=== PATIENT | male | born 1990 | race Caucasian/White ===

== ENCOUNTER 2020-02-06 20:35 | Inpatient (IN) | payer MEDICAID ==
[~2020-02-06] VITALS: Ht 182.9 cm; Wt 70.0 kg
[2020-02-06 21:49] LABS: BASOPHILS % (AUTO) 0.2 % (0-1); EOSINOPHILS # (AUTO) 0.1 X10'3 (0-0.9); EOSINOPHILS % (AUTO) 0.7 % (0-6); HEMATOCRIT 40.2 % (42.0-52.0); LYMPHOCYTES # (AUTO) 0.9 X10'3 (1.1-4.8); LYMPHOCYTES % (AUTO) 7.6 % (21-51); MEAN CORPUSCULAR HEMOGLOBIN 33.4 PG (27.0-31.0); MEAN CORPUSCULAR HGB CONC 34.8 g/dL (33.0-36.5); MEAN CORPUSCULAR VOLUME 95.8 FL (78-98); MONOCYTES # (AUTO) 0.9 X10'3 (0-0.9); MONOCYTES % (AUTO) 7.4 % (2-12); NEUTROPHILS # (AUTO) 10.2 X10'3 (1.8-7.7); NEUTROPHILS % (AUTO) 84.1 % (42-75); PLATELET COUNT 206 X10'3 (140-440); RED CELL DISTRIBUTION WIDTH 13.9 % (11.5-14.5); WHITE BLOOD COUNT 12.1 X10'3 (4.5-11.0)
[2020-02-06 22:03] LABS: ALANINE AMINOTRANSFERASE 26 U/L (12-78); ALBUMIN 3.9 G/DL (3.4-5.0); ALBUMIN/GLOBULIN RATIO 1.2 (1.1-1.5); ALKALINE PHOSPHATASE 90 IU/L (46-116); ANION GAP 8 (8-16); ASPARTATE AMINO TRANSFERASE 26 U/L (10-37); BILIRUBIN,TOTAL 0.9 MG/DL (0.1-1.0); BLOOD UREA NITROGEN 14 MG/DL (7-18); BUN/CREATININE RATIO 13.2 (5.4-32.0); CALCIUM 9.2 MG/DL (8.5-10.1); CHLORIDE 102 MMOL/L (99-107); CREATININE 1.06 MG/DL (0.60-1.10); GLUCOSE 119 MG/DL (70-104); SODIUM 138 MMOL/L (135-145); TOTAL PROTEIN 7.2 G/DL (6.4-8.2); eGFR 83 ML/MIN
[2020-02-06] MEDS ORDERED: LORazepam 2 mg/ml vial IV ONE (22:45)
--- NOTE | 2020-02-06 22:46 | NUR ---
PT BROTHER MICHELA CALLED. RECEIVED PERMISSION FROM PT TO TALK WITH MICHELA. CALLBACK #[phone]
[2020-02-06 23:09] LABS: URINE AMPHETAMINE SCREEN POSITIVE (Neg); URINE BARBITUATE SCREEN NEGATIVE (Neg); URINE BENZODIAZEPINES SCREEN NEGATIVE (Neg); URINE CANNABINOID SCREEN POSITIVE (Neg); URINE COCAINE SCREEN POSITIVE (Neg); URINE METHADONE SCREEN NEGATIVE (Neg); URINE OPIATE SCREEN NEGATIVE (Neg); URINE PHENCYCLIDINE SCREEN NEGATIVE (Neg)
[2020-02-06 23:10] LABS: ETHANOL < 0.010 GM/DL (0.0-0.010)
[2020-02-07] MEDS ORDERED: LORazepam 2 mg/ml vial IV ONE (02:30)
[2020-02-07] MEDS ORDERED: normal saline 1000ML IV soln IVB ONE (02:30)
--- NOTE | 2020-02-07 02:58 | NUR ---
PT PULLED OUT IV IN HAND WHILE ATTEMPTING TO GET OUT OF BED. NEW IV PLACED AND TROP DRAWN
[2020-02-07] MEDS ORDERED: phenobarbital inj 260 MG in normal saline 100ml IV soln 98 ML IV STA (03:02)
--- NOTE | 2020-02-07 03:03 | NUR ---
SPOKE WITH IONA PUGA REGARDING PT SEEMING CONFUSED AND UNABLE TO PROCESS BASIC INSTRUCTIONS. RECEVIED VERBAL ORDER FOR PHENOBARBITAL 260MG IN 100ML NS IV X1 DOSE NOW. ORDER PLACED RECEIVED
--- NOTE | 2020-02-07 03:59 | NUR ---
PT CONFUSED AND UNABLE TO FOLLOW SAFETY DIRECTIONS. HE HAS PULLED HIS IV OUT AND WILL NOT QUIT CLIMBING OUT OF BED. MD AWARE AND VERBAL ORDER GIVEN FOR SOFT WRIST RESTRAINTS UNTIL PTS MENTATION IMPROVES AND HE IS ABLE TO FOLLOW DIRECTIONS.
[2020-02-07] MEDS ORDERED: NO HOME MEDS (04:35)
[2020-02-07] MEDS ORDERED: dextrose 50%-water 50ml dispensing syringe IV PRN (04:50)
[2020-02-07] MEDS ORDERED: potassium CL 10mEq/100ml bag 100 ML IV PRN ×2 (04:50)
[2020-02-07] MEDS ORDERED: potassium Cl 20 mEq SR tablet PO PRN ×2 (04:50)
[2020-02-07] MEDS ORDERED: magnesium Cl slow-release 64mg tablet PO PRN (04:50)
[2020-02-07] MEDS ORDERED: haloperidol 5mg tablet PO PRN (04:50)
[2020-02-07] MEDS ORDERED: HYDROcodone/acetaminophen 5mg/325mg tablet PO PRN (04:50)
[2020-02-07] MEDS ORDERED: morphine 2 MG/ML inj. syringe IV PRN (04:50)
[2020-02-07] MEDS ORDERED: LORazepam 2 mg/ml vial IV PRN (04:50)
[2020-02-07] MEDS ORDERED: magnesium 2GM in 50ml NS 50 ML IV PRN (04:50)
[2020-02-07] MEDS ORDERED: acetaminophen 325mg tablet PO PRN ×2 (04:50)
[2020-02-07] MEDS ORDERED: thiamine 100mg/ml 2ml inj. IV ONE (04:50)
[2020-02-07] MEDS ORDERED: ondansetron/PF 4mg/2ml inj IV PRN (04:50)
[2020-02-07] MEDS ORDERED: haloperidol lactate 5mg/ml inj IM PRN (04:50)
[2020-02-07] MEDS ORDERED: magnesium 4gm in 100ml NS 100 ML IV PRN (04:50)
[2020-02-07] MEDS ORDERED: thiamine inj. 100 MG in normal saline 100ml IV soln 100 ML IV ONE (05:05)
[2020-02-07] MEDS: normal saline 1000ml 1,000 ML IV SCH ×2 (05:14→19:20)
--- NOTE | 2020-02-07 05:32 | NUR ---
SPOKE WITH IONA PUGA REGARDING PT WITHDRAWAL PROTOCOL AND WHICH MEDICATION TO PROCEED WITH DUE TO PT STILL BEING AWAKE AND PULLING ON RESTRAINTS AND UNABLE TO REST. IONA PUGA SUGGESTED TO NEXT USE HALDOL 5MG IM ORDERED FOR WITHDRAWAL PROTOCOL TO RELAX PT.
--- NOTE | 2020-02-07 06:04 | NUR ---
PT NOW RESTING COMFORTABLY. NO S/S ACUTE DISTRESS. RESPIRATIONS EVEN AND UNLABORED. WILL CONTINUE TO MONITOR
[2020-02-07 06:11] LABS: CLARITY,URINE CLOUDY (Clear); COLOR,URINE YELLOW (Yellow); GLUCOSE, URINE NEGATIVE (Neg); KETONES,URINE NEGATIVE (Neg); LEUKOCYTE ESTERASE ,URINE NEGATIVE (Neg); NITRITES, URINE NEGATIVE (Neg); OCCULT BLOOD,URINE NEGATIVE (Neg); PH,URINE 6.5 (4.8-8.0); PROTEIN,URINE NEGATIVE (Neg); UROBILINOGEN,URINE 0.2 E.U/dL (0.2-1.0)
[2020-02-07 06:34] LABS: UA COLLECTION TYPE VOIDED
[2020-02-07 06:36] LABS: BACTERIA,URINE NONE SEEN /HPF (Neg); MUCUS STRANDS FEW /LPF (Neg); RBC,URINE NONE SEEN /HPF (0-2); SQUAMOUS EPITHELIAL CELL,UR FEW /LPF (FEW); WBC,URINE NONE SEEN /HPF (0-4)
[2020-02-07] MEDS: K and/or MAG REPLACEMENT MC SCH ×2 (08:00→19:21)
[2020-02-07] MEDS: docusate sod 100mg capsule PO SCH ×2 (09:47→19:19)
[2020-02-07] MEDS: CefTRIAXone 2gm/D5W 50ml BAG 50 ML IV SCH (09:47)
[2020-02-07] MEDS: heparin, porcine 5000 units/ml vial SQ SCH ×2 (09:49→19:20)
--- NOTE | 2020-02-07 11:14 | NUR ---
Removed restraints. Pt awaken to name. Explained to patient that I was removing restraints.
--- NOTE | 2020-02-07 12:28 | NUR ---
Pt resting with eyes closed. RR even and unlabored. No acute distress noted.
--- NOTE | 2020-02-07 12:31 | NUR ---
Office Services Assistant at bedside. Pt not alert enough for conversation, SS will re-evaluate patient on the floor.
--- NOTE | 2020-02-07 15:14 | NUR ---
Pt awakens to voice. Answering questions appropriately.
--- NOTE | 2020-02-07 16:21 | NUR ---
Patient in room ED 16. I have received report from and had the opportunity to ask questions and assume patient care.
--- NOTE | 2020-02-07 17:07 | NUR ---
Patient alert and oriented but reports still feeling confused . Patient able follow commands is cooperative.
[2020-02-07] MEDS ORDERED: DIVA500T2 PO (17:57)
[2020-02-07 18:00] VITALS: BP 129/95
[2020-02-07] MEDS ORDERED: HYDR-3717 PO (18:01)
[2020-02-07] MEDS ORDERED: QUET200T PO (18:01)
--- NOTE | 2020-02-07 18:33 | NUR ---
Patient in room PCU 3012. I have received report from BRIEN LUONG and had the opportunity to ask questions and assume patient care.
--- NOTE | 2020-02-07 19:02 | NUR ---
Problems reprioritized. Patient report given, questions answered & plan of care reviewed with Akira RN.
[2020-02-07] MEDS: lactobacillus rhamnosus 10,000 MMU CELLS/CAPSULE PO SCH (19:19)
[2020-02-08] MEDS: normal saline 1000ml 1,000 ML IV SCH ×3 (00:50→21:44)
[2020-02-08 02:00] VITALS: BP 113/81
[2020-02-08 05:52] LABS: BASOPHILS % (AUTO) 0.4 % (0-1); EOSINOPHILS # (AUTO) 0.3 X10'3 (0-0.9); EOSINOPHILS % (AUTO) 3.8 % (0-6); HEMATOCRIT 40.4 % (42.0-52.0); HEMOGLOBIN 13.8 g/dl (14.0-17.9); LYMPHOCYTES # (AUTO) 1.3 X10'3 (1.1-4.8); LYMPHOCYTES % (AUTO) 19.1 % (21-51); MEAN CORPUSCULAR HEMOGLOBIN 33.2 PG (27.0-31.0); MEAN CORPUSCULAR HGB CONC 34.3 g/dL (33.0-36.5); MEAN CORPUSCULAR VOLUME 96.9 FL (78-98); MEAN PLATELET VOLUME 7.4 FL (7.4-10.4); MONOCYTES # (AUTO) 0.6 X10'3 (0-0.9); MONOCYTES % (AUTO) 8.9 % (2-12); NEUTROPHILS # (AUTO) 4.6 X10'3 (1.8-7.7); NEUTROPHILS % (AUTO) 67.8 % (42-75); PLATELET COUNT 170 X10'3 (140-440); RED BLOOD COUNT 4.17 X10'6 (4.70-6.10); RED CELL DISTRIBUTION WIDTH 14.1 % (11.5-14.5); WHITE BLOOD COUNT 6.8 X10'3 (4.5-11.0)
[2020-02-08 06:00] VITALS: BP 113/77
[2020-02-08 06:09] LABS: ALANINE AMINOTRANSFERASE 26 U/L (12-78); ALBUMIN 3.4 G/DL (3.4-5.0); ALBUMIN/GLOBULIN RATIO 1.1 (1.1-1.5); ALKALINE PHOSPHATASE 74 IU/L (46-116); ANION GAP 8 (8-16); ASPARTATE AMINO TRANSFERASE 25 U/L (10-37); BILIRUBIN,TOTAL 0.8 MG/DL (0.1-1.0); BLOOD UREA NITROGEN 11 MG/DL (7-18); BUN/CREATININE RATIO 11.8 (5.4-32.0); CALCIUM 8.4 MG/DL (8.5-10.1); CHLORIDE 107 MMOL/L (99-107); CREATININE 0.93 MG/DL (0.60-1.10); GLUCOSE 68 MG/DL (70-104); MAGNESIUM 2.1 MG/DL (1.5-2.4); POTASSIUM 3.9 MMOL/L (3.5-5.1); SODIUM 142 MMOL/L (135-145); TOTAL PROTEIN 6.6 G/DL (6.4-8.2); eGFR > 90 ML/MIN
--- NOTE | 2020-02-08 06:15 | NUR ---
Problems reprioritized. Patient report given, questions answered & plan of care reviewed with BROOKE LUONG.
--- NOTE | 2020-02-08 06:27 | NUR ---
Patient in room PCU 3012. I have received report from Akira LUONG and had the opportunity to ask questions and assume patient care.
[2020-02-08] MEDS: CefTRIAXone 2gm/D5W 50ml BAG 50 ML IV SCH (07:24)
[2020-02-08] MEDS: lactobacillus rhamnosus 10,000 MMU CELLS/CAPSULE PO SCH ×2 (07:24→20:15)
[2020-02-08] MEDS: docusate sod 100mg capsule PO SCH ×2 (07:24→20:15)
[2020-02-08] MEDS: heparin, porcine 5000 units/ml vial SQ SCH ×2 (07:25→20:12)
[2020-02-08] MEDS: K and/or MAG REPLACEMENT MC SCH ×2 (08:00→20:00)
[2020-02-08 11:00] VITALS: BP 121/81
--- NOTE | 2020-02-08 13:53 | NUR ---
Malnutrition consult. Pt reports "unsure" of any recent weight loss. Reports eating poorly for more than one week d/t decreased appetite. Patient has history of EtOH, meth, and cocaine abuse, all likely to decrease appetite. Per physician progress note pt confused and presented with AMS. First meal 25-49% PO intake. heart healthy diet. No edema. No apparent malnutrition at this time. Addendum: 02/08/20 at [address] Amended: Links added.
[2020-02-08 15:00] VITALS: BP 114/76
[2020-02-08] MEDS ORDERED: propranolol 10mg tablet PO ONE (16:25)
[2020-02-08] MEDS ORDERED: diltiazem 30mg tablet PO ONE (16:25)
[2020-02-08 17:58] LABS: HIV ANTIBODY 1&2 RAPID NON-REACTIVE (Neg)
[2020-02-08 18:00] VITALS: BP 114/76
--- NOTE | 2020-02-08 18:24 | NUR ---
Problems reprioritized. Patient report given, questions answered & plan of care reviewed with Akira RN.
--- NOTE | 2020-02-08 18:25 | NUR ---
Patient in room PCU 3012. I have received report from David LUONG and had the opportunity to ask questions and assume patient care.
[2020-02-08] MEDS: diltiazem 30mg tablet PO SCH (20:13)
[2020-02-08] MEDS ORDERED: propranolol 10mg tablet PO SCH (21:00)
[2020-02-08 23:00] VITALS: BP 119/82
[2020-02-09] VITALS (7 sets, daily range): BP systolic 105–128; BP diastolic 73–88
[2020-02-09] MEDS: diltiazem 30mg tablet PO SCH ×4 (01:09→20:31)
[2020-02-09] MEDS ORDERED: LORazepam 2 mg/ml vial IV PRN (04:50)
[2020-02-09 05:51] LABS: BASOPHILS % (AUTO) 0.4 % (0-1); EOSINOPHILS # (AUTO) 0.2 X10'3 (0-0.9); EOSINOPHILS % (AUTO) 3.1 % (0-6); HEMOGLOBIN 13.9 g/dl (14.0-17.9); LYMPHOCYTES # (AUTO) 1.1 X10'3 (1.1-4.8); MEAN CORPUSCULAR HEMOGLOBIN 33.8 PG (27.0-31.0); MEAN CORPUSCULAR HGB CONC 34.8 g/dL (33.0-36.5); MEAN CORPUSCULAR VOLUME 97.2 FL (78-98); MEAN PLATELET VOLUME 7.4 FL (7.4-10.4); MONOCYTES # (AUTO) 0.7 X10'3 (0-0.9); MONOCYTES % (AUTO) 11.8 % (2-12); NEUTROPHILS # (AUTO) 4.1 X10'3 (1.8-7.7); NEUTROPHILS % (AUTO) 66.7 % (42-75); PLATELET COUNT 182 X10'3 (140-440); RED BLOOD COUNT 4.11 X10'6 (4.70-6.10); RED CELL DISTRIBUTION WIDTH 13.9 % (11.5-14.5); WHITE BLOOD COUNT 6.1 X10'3 (4.5-11.0)
--- NOTE | 2020-02-09 06:09 | NUR ---
Problems reprioritized. Patient report given, questions answered & plan of care reviewed with David LUONG
[2020-02-09 06:13] LABS: ALANINE AMINOTRANSFERASE 30 U/L (12-78); ALBUMIN 3.4 G/DL (3.4-5.0); ALKALINE PHOSPHATASE 71 IU/L (46-116); ANION GAP 8 (8-16); ASPARTATE AMINO TRANSFERASE 37 U/L (10-37); BILIRUBIN,TOTAL 0.5 MG/DL (0.1-1.0); BLOOD UREA NITROGEN 13 MG/DL (7-18); BUN/CREATININE RATIO 14.6 (5.4-32.0); CALCIUM 8.4 MG/DL (8.5-10.1); CHLORIDE 105 MMOL/L (99-107); CREATININE 0.89 MG/DL (0.60-1.10); GLUCOSE 73 MG/DL (70-104); MAGNESIUM 2.1 MG/DL (1.5-2.4); POTASSIUM 3.7 MMOL/L (3.5-5.1); SODIUM 140 MMOL/L (135-145); TOTAL CARBON DIOXIDE 27.4 MMOL/L (24-32); TOTAL PROTEIN 6.8 G/DL (6.4-8.2); eGFR > 90 ML/MIN
--- NOTE | 2020-02-09 06:21 | NUR ---
Patient in room PCU 3012. I have received report from Akira LUONG and had the opportunity to ask questions and assume patient care.
[2020-02-09] MEDS: normal saline 1000ml 1,000 ML IV SCH ×2 (06:50→17:39)
[2020-02-09] MEDS: lactobacillus rhamnosus 10,000 MMU CELLS/CAPSULE PO SCH ×2 (07:27→20:31)
[2020-02-09] MEDS: docusate sod 100mg capsule PO SCH ×2 (07:27→20:31)
[2020-02-09] MEDS: heparin, porcine 5000 units/ml vial SQ SCH ×2 (07:28→20:32)
[2020-02-09] MEDS: K and/or MAG REPLACEMENT MC SCH ×2 (07:29→20:00)
[2020-02-09] MEDS ORDERED: PROP10TA10 PO (10:57)
--- NOTE | 2020-02-09 11:05 | NUR ---
PAGER ID: [phone] MESSAGE: [id number] Bonilla Oropeza: I updated his home med list, also pt is requesting if we can increase Cardizem, pt continues to trend in the 115's-125's. thanks [phone]
--- NOTE | 2020-02-09 18:09 | NUR ---
Problems reprioritized. Patient report given, questions answered & plan of care reviewed with Andi LUONG.
--- NOTE | 2020-02-09 18:30 | NUR ---
Patient in room PCU 3012. I have received report from CHERISE Fuentes and had the opportunity to ask questions and assume patient care. Safety measures in place, bed in low and locked position. Call light and personal items within reach. Will continue to monitor for remainder of shift.
[2020-02-10] MEDS: LORazepam 1 MG tablet PO PRN ×2 (00:51→08:09)
[2020-02-10] MEDS: normal saline 1000ml 1,000 ML IV SCH (02:25)
[2020-02-10] MEDS: diltiazem 30mg tablet PO SCH ×2 (02:25→08:07)
[2020-02-10 06:45] VITALS: BP 105/76
--- NOTE | 2020-02-10 06:45 | NUR ---
Patient in room PCU 3012. I have received report from ROSS LUONG and had the opportunity to ask questions and assume patient care. PT DENIES NEEDS. CALL LIGHT IN REACH. Addendum: 02/10/20 at 0917 by Susan Simpson RN Amended: Links added.
[2020-02-10 06:47] LABS: BASOPHILS % (AUTO) 0.4 % (0-1); EOSINOPHILS # (AUTO) 0.2 X10'3 (0-0.9); EOSINOPHILS % (AUTO) 3.5 % (0-6); HEMATOCRIT 39.9 % (42.0-52.0); HEMOGLOBIN 13.7 g/dl (14.0-17.9); LYMPHOCYTES # (AUTO) 1.2 X10'3 (1.1-4.8); LYMPHOCYTES % (AUTO) 26.5 % (21-51); MEAN CORPUSCULAR HEMOGLOBIN 33.5 PG (27.0-31.0); MEAN CORPUSCULAR HGB CONC 34.4 g/dL (33.0-36.5); MEAN CORPUSCULAR VOLUME 97.2 FL (78-98); MEAN PLATELET VOLUME 7.8 FL (7.4-10.4); MONOCYTES # (AUTO) 0.8 X10'3 (0-0.9); MONOCYTES % (AUTO) 16.2 % (2-12); NEUTROPHILS # (AUTO) 2.5 X10'3 (1.8-7.7); NEUTROPHILS % (AUTO) 53.4 % (42-75); PLATELET COUNT 202 X10'3 (140-440); RED CELL DISTRIBUTION WIDTH 13.9 % (11.5-14.5); WHITE BLOOD COUNT 4.7 X10'3 (4.5-11.0)
--- NOTE | 2020-02-10 06:56 | NUR ---
Problems reprioritized. Patient report given, questions answered & plan of care reviewed with CHERISE Melara. Care plan followed, medications administered as ordered. Safety measures in place, bed in low and locked position. Call light and personal items within reach. Will continue to monitor for remainder of shift.
[2020-02-10 07:09] LABS: ALANINE AMINOTRANSFERASE 32 U/L (12-78); ALBUMIN 3.5 G/DL (3.4-5.0); ALBUMIN/GLOBULIN RATIO 1.1 (1.1-1.5); ALKALINE PHOSPHATASE 67 IU/L (46-116); ANION GAP 8 (8-16); ASPARTATE AMINO TRANSFERASE 47 U/L (10-37); BILIRUBIN,TOTAL 0.5 MG/DL (0.1-1.0); BLOOD UREA NITROGEN 11 MG/DL (7-18); BUN/CREATININE RATIO 12.6 (5.4-32.0); CALCIUM 8.6 MG/DL (8.5-10.1); CHLORIDE 107 MMOL/L (99-107); CREATININE 0.87 MG/DL (0.60-1.10); GLUCOSE 77 MG/DL (70-104); MAGNESIUM 2.1 MG/DL (1.5-2.4); SODIUM 143 MMOL/L (135-145); TOTAL CARBON DIOXIDE 27.6 MMOL/L (24-32); TOTAL PROTEIN 6.7 G/DL (6.4-8.2); eGFR > 90 ML/MIN
[2020-02-10] MEDS: K and/or MAG REPLACEMENT MC SCH (08:00)
[2020-02-10] MEDS: docusate sod 100mg capsule PO SCH (08:08)
[2020-02-10] MEDS: lactobacillus rhamnosus 10,000 MMU CELLS/CAPSULE PO SCH (08:08)
[2020-02-10] MEDS: heparin, porcine 5000 units/ml vial SQ SCH (08:09)
[2020-02-10 08:16] LABS: PLATELET ESTIMATE NORMAL
[2020-02-10] MEDS ORDERED: LACT1CAP26 PO (11:25)
[2020-02-10] MEDS ORDERED: DILT30TA5 PO (11:25)
[2020-02-10] MEDS ORDERED: divalproex 250mg tablet, delayed-release PO ONE (11:35)
--- NOTE | 2020-02-10 13:31 | NUR ---
PT D/CD TO HOME. REMOVED PIV. CANNULA INTACT. ALL WRITTEN AND VERBAL ORDERS FOR D/C WRITTEN. MEDICATIONS CALLED INTO [address] [facility]. PT GIVEN COPY OF EMERGENCY MEDICAL CARD. PT INFORMED TO FOLLOW UP WITH MEDICAL PEOPLE HERE. PT STATED HE HAD ALL BELONGING.
[2020-02-11] MEDS ORDERED: LORazepam 2 mg/ml vial IV PRN (04:50)
[2020-02-11] MEDS ORDERED: LORazepam 1 MG tablet PO PRN (04:50)
== END 2020-02-10 13:20 | disposition home or self-care (01) | DRG 816 ==
LOC: ER 20:35 → ED HOLD 02-07 04:47 → PCU 3S 02-07 16:38
PROVIDERS: ADMIT Internal Medicine; ATTEND Internal Medicine
DX: T40.5X1A Poisoning by cocaine, accidental (unintentional), initial encounter (principal); F10.10 Alcohol abuse, uncomplicated; G92 Toxic encephalopathy; T51.8X1A Toxic effect of other alcohols, accidental (unintentional), initial encounter; R00.0 Tachycardia, unspecified; F15.10 Other stimulant abuse, uncomplicated; Y92.89 Other specified places as the place of occurrence of the external cause; F14.10 Cocaine abuse, uncomplicated; Z87.891 Personal history of nicotine dependence
CPT/HCPCS: 36415; 70450; 71045; 80053; 80305; 80320; 81001; 83605; 83735; 83880; 84145; 84443; 84484; 85008; 85025; 86703; 87040; 87081; 93005; 96374; 97116; 97161; 97530; 99285; G0378; J0696; J1630; J1644; J2060; J2560; J3411; J7030